=== PATIENT | male | born 2000 | race Caucasian/White ===

== ENCOUNTER 2020-06-28 22:49 | Emergency (ER) | payer SELFPAY ==
[~2020-06-28] VITALS: Ht 167.6 cm; Wt 93.6 kg
[2020-06-28 23:03] VITALS: BP 135/86
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
[2020-06-29] MEDS ORDERED: IBUP-2213 PO (00:47)
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
--- NOTE | 2020-06-29 00:50 | NUR ---
Patient discharged with v/s stable. Written and verbal after care instructions Re: Left Wrist Pain given and explained. Patient alert, oriented and verbalized understanding of instructions. Ambulatory with steady gait. All questions addressed prior to discharge. ID band removed. Patient advised to follow up with PMD. Rx of Motrin given. Patient educated on indication of medication including possible reaction and side effects. Opportunity to ask questions provided and answered.
[2020-06-29 00:51] VITALS: BP 135/86
== END 2020-06-29 00:50 | disposition home or self-care (01) ==
LOC: MED 22:49
DX: M25.532 Pain in left wrist (principal); V18.0XXA Pedal cycle driver injured in noncollision transport accident in nontraffic accident, initial encounter; Y93.89 Activity, other specified; Y92.89 Other specified places as the place of occurrence of the external cause; Y99.8 Other external cause status
CPT/HCPCS: 73130; 99283